=== PATIENT | female | born 1950 | race Caucasian/White ===

== ENCOUNTER → 2020-02-07 | Outpatient (CLI) | payer MEDICARE ==
--- NOTE | 2020-02-08 06:14 | MR ---
EXAMINATION TYPE: MR knee LT wo con DATE OF EXAM: 02/07/2020 COMPARISON: Outside left knee x-ray February 02, 2020. HISTORY: Left knee pain per order. TECHNIQUE: Multiplanar, multisequence images of the knee is performed without IV contrast. FINDINGS: MEDIAL MENISCUS: Anterior horn is intact without tear. Oblique signal posterior horn extends to infer ior articular surface with fraying on sagittal image 24. LATERAL MENISCUS: Horizontal increased signal through the anterior and posterior horns along the cent ral body. CRUCIATE LIGAMENTS: The anterior and posterior cruciate ligaments are intact and unremarkable. COLLATERAL LIGAMENTS: The medial collateral ligament and lateral collateral ligament complex are inta ct and unremarkable. EXTENSOR MECHANISM: Visualized quadriceps and patellar tendons are intact. EFFUSION: No significant suprapatellar joint effusion. POPLITEAL CYST: No popliteal/cee cyst. TRICOMPARTMENT SPACES: Moderate tricompartment joint space loss with mild to moderate tricompartmenta l joint space spurring. CARTILAGE: Some chondromalacia patella with thinning of articular cartilage along the posterior villa lar pole superiorly. BONE MARROW SIGNAL: Small areas of increased T2 signal the posterior patellar pole and areas of carti laginous loss for reference sagittal image 17. OTHER: No additional significant abnormality is appreciated. IMPRESSION: 1. Horizontal tear through the lateral meniscus including anterior and posterior horns along the cent ral body. 2. Oblique full-thickness tear posterior horn medial meniscus. 3. Moderate tricompartment degenerative changes greatest patellofemoral compartment as detailed above .
== END | disposition home or self-care (01) ==
LOC: RADMRIMAIN 17:50
PROVIDERS: ATTEND Orthopaedic Surgery
DX: S83.242A Other tear of medial meniscus, current injury, left knee, initial encounter (principal); S83.282A Other tear of lateral meniscus, current injury, left knee, initial encounter; M17.12 Unilateral primary osteoarthritis, left knee

== ENCOUNTER → 2020-02-21 | Outpatient (CLI) | payer MEDICARE ==
[2020-02-21 15:30] LABS: Basophils % (A) 0 %; Eosinophils # (A) 0.2 k/uL (0-0.7); Eosinophils % (A) 3 %; HCT 36.4 % (34.0-46.0); HGB 11.7 gm/dL (11.4-16.0); Lymphocytes # (A) 1.7 k/uL (1.0-4.8); Lymphocytes % (A) 29 %; MCH 29.7 pg (25.0-35.0); MCHC 32.1 g/dL (31.0-37.0); MCV 92.6 fL (80.0-100.0); Mean Platelet Volume 8.4; Monocytes # (A) 0.4 k/uL (0-1.0); Monocytes % (A) 6 %; Neutrophils # (A) 3.6 k/uL (1.3-7.7); Neutrophils % (A) 60 %; Platelet Count 177 k/uL (150-450); RBC 3.93 m/uL (3.80-5.40); RDW 12.8 % (11.5-15.5)
[2020-02-21 17:53] LABS: Potassium 4.3 mmol/L (3.5-5.1)
== END | disposition home or self-care (01) ==
LOC: LABPAT 14:47
PROVIDERS: ATTEND Orthopaedic Surgery
DX: Z01.818 Encounter for other preprocedural examination (principal); M23.92 Unspecified internal derangement of left knee
CPT/HCPCS: 36415; 80051; 85025; 93005

== ENCOUNTER 2020-03-07 11:00 | Day surgery (SDC) | payer MEDICARE ==
[2020-03-04 15:33] VITALS: BMI 27.4
--- NOTE | 2020-03-06 15:44 | HP ---
HISTORY AND PHYSICAL DATE OF SURGERY: 03/07/2020 Alejandra Hawthorne is a 69-year-old patient seen with progressive left knee pain. We discussed options for treatment. She elected to proceed with arthroscopy. Consent was obtained. PAST MEDICAL HISTORY: Hypothyroidism, osteoarthritis. PAST SURGICAL HISTORY: Left knee arthroscopy, D and C. DAILY MEDICATIONS: Ibuprofen, Synthroid, [place], vitamins. ALLERGIES: None. SOCIAL HISTORY: She denies tobacco use. PHYSICAL EVALUATION OF THE LEFT KNEE: Range of motion 0-120, there is a mild effusion. Tenderness along the medial joint line with a positive medial Effie's. Ligaments are stable. Hip rotation is without pain. Distal neurovascular exam is intact. Left knee radiographs revealed osteoarthritis changes. MRI left knee revealed medial meniscal tear, lateral meniscal tear and osteoarthritic changes. IMPRESSION: 1. Internal derangement, left knee with meniscal tears. 2. Left knee osteoarthritis. 3. Hypothyroidism. PLAN: Left knee arthroscopy with partial meniscectomy, partial synovectomy and debridement. MMODL / IJN: [id number] /
[~2020-03-07 11:00] MED LIST: LACTATED RINGERS 1,000 ML IV SCH
[2020-03-07] MEDS ORDERED: LIDOCAINE 1% (10MG/ML) FOR IV START INTRADERMA ONE (11:59)
[2020-03-07] MEDS ORDERED: ONDANSETRON 4 MG/2 ML VIAL ONE (12:03)
[2020-03-07] MEDS ORDERED: ONDANSETRON 4 MG/2 ML VIAL IVP ONE (12:22)
[2020-03-07] MEDS ORDERED: DEXAMETHASONE SOD PHOSPHATE 10 MG/ML 1 ML VIAL IV ONE (12:22)
[2020-03-07] MEDS ORDERED: LIDOCAINE 1% INJ 10MG/ML (20 ML MDV) ONE (12:47)
[2020-03-07] MEDS ORDERED: fentaNYL (PF) 50 MCG/ML 2 ML AMP ONE (12:47)
[2020-03-07] MEDS ORDERED: MIDAZOLAM 2 MG/2 ML VIAL ONE (12:47)
[2020-03-07] MEDS ORDERED: PROPOFOL 10 MG/ML 20 ML VIAL IV ONE (12:47)
[2020-03-07] MEDS ORDERED: BUPIVACAINE (PF) 0.25% 30 ML VIAL SQ ONE (13:17)
[2020-03-07] MEDS ORDERED: HYDROmorphone 0.5 MG/0.5 ML SYRINGE IVP ONE (13:40)
[2020-03-07 13:44] VITALS: TEMP 97
--- NOTE | 2020-03-07 13:44 | P.OP ---
Date of Procedure: 03/07/20 Preoperative Diagnosis: Internal derangement left knee Postoperative Diagnosis: 1. Tear medial meniscus left knee 2. Grade 2 chondromalacia medial femoral condyle left knee 3. Reactive synovitis medial, lateral and suprapatellar compartments left knee Procedure(s) Performed: 1. Arthroscopic partial medial meniscectomy left knee 2. Arthroscopic chondroplasty medial femoral condyle left knee 3. Arthroscopic partial synovectomy medial, lateral and suprapatellar compartments left knee Anesthesia: CORNELIAA, local Surgeon: Tray Jensen Estimated Blood Loss (ml): 7 Pathology: none sent Condition: stable Disposition: PACU Indications for Procedure: 69-year-old patient seen with progressive left knee pain. After treatment options were discussed, she elected to proceed with arthroscopy. Operative Findings: See description of procedure Description of Procedure: Patient was taken to the operative suite. Patient underwent a general anesthetic by the department of anesthesia. Patient was given preoperative antibiotics. The left lower extremity was placed in a well-padded arthroscopic leg soliz. The left leg was prepped and draped in the normal sterile orthopedic fashion. A lateral parapatellar and suprapatellar incision was made. Trochars were inserted. Arthroscopy was initiated. Suprapatellar pouch revealed diffuse thick reactive synovitis. The patellofemoral joint appeared to articulate congruently. There was grade 1 chondromalacia. The scope was guided into the medial gutter. No loose bodies or plica were identified.The scope was then guided into the medial compartment. A medial parapatellar incision was made. Trocar inserted followed by probe. There was a radial tear posterior horn medial meniscus. There were grade 2 chondromalacia changes of the medial femoral condyle with some small osteochondral flap tears present. There was thick reactive synovitis anteriorly. I performed a partial medial meniscectomy. I performed a chondroplasty of the medial femoral condyle. I performed a partial synovectomy. The residual meniscus was stable. The residual osteochondral surface was stable. He was good decompression of the synovitis. Scope and probe were then guided into the intercondylar notch. Cruciates were identified, probed and found to be stable. The scope and probe were then guided into lateral compartment. There was some superficial fraying of the lateral meniscus. There were grade 1 chondromalacia changes of the lateral femoral condyle. There was an area more medially some grade 3/4 chondromalacia with areas of exposed bone. There was thick reactive synovitis anteriorly. I performed a partial synovectomy. I debrided that superficial fraying. There was good decompression of synovitis. The scope was in guided back into the suprapatellar compartment. I introduced a motorized shaver into the suprapatellar. I debrided some piecemeal fragments of meniscus I encountered. I performed a partial synovectomy decompressing the reactive synovitis. The s haver was removed. I took one more look on the entire knee, no residual debris. Instruments were now removed from the joint. The joint was infiltrated with .25% Marcaine. Steri-Strips were applied to the portal sites. Sterile dressings were applied. The patient was placed into a MIKE hose. No tourniquet was utilized. The patient was awakened, transferred to a bed and taken to recovery stable satisfactory condition.
[2020-03-07 14:00] VITALS: RESP 16
[2020-03-07] MEDS ORDERED: SODIUM CHLORIDE 0.9% 1,000 ML IV ONE (14:01)
[2020-03-07 14:35] VITALS: BP 139/92; PULSE 58
== END 2020-03-07 14:57 | disposition home or self-care (01) ==
LOC: OR 11:00
PROVIDERS: ATTEND Orthopaedic Surgery
DX: M23.222 Derangement of posterior horn of medial meniscus due to old tear or injury, left knee (principal); M94.262 Chondromalacia, left knee; M65.862 Other synovitis and tenosynovitis, left lower leg; M17.12 Unilateral primary osteoarthritis, left knee; E03.9 Hypothyroidism, unspecified; Z91.018 Allergy to other foods; Z79.890 Hormone replacement therapy; Z79.1 Long term (current) use of non-steroidal anti-inflammatories (NSAID)
CPT/HCPCS: 29881; J2250; J1100; J0690; J2405; J2001; J3010; J2704; J1170

== ENCOUNTER 2023-01-07 07:01 | Day surgery (SDC) | payer MEDICARE ==
[2023-01-07] MEDS ORDERED: droPERidol 5 MG/2 ML VIAL IVP ONE (07:21)
[2023-01-07] MEDS ORDERED: LACTATED RINGERS 1,000 ML IV SCH (07:21)
[2023-01-07] MEDS ORDERED: DEXAMETHASONE SOD PHOSPHATE 4 MG/ML 1 ML VIAL IV ONE (07:21)
[2023-01-07] MEDS ORDERED: HYDROmorphone 0.5 MG/0.5 ML SYRINGE IVP PRN (07:21)
[2023-01-07] MEDS ORDERED: LIDOCAINE 1% (10MG/ML) FOR IV START INTRADERMA PRN (07:21)
[2023-01-07] MEDS ORDERED: ONDANSETRON 4 MG/2 ML VIAL IVP ONE (07:21)
--- NOTE | 2023-01-07 07:44 | HP ---
HISTORY AND PHYSICAL DATE OF SURGERY: 01/07/2023. HISTORY OF PRESENT ILLNESS: Alejandra Hawthorne is a 72-year-old patient seen with progressive right knee pain. Options for treatment were discussed with her. She elected to proceed with right knee arthroscopy. Consent regarding the procedure was obtained. PAST MEDICAL HISTORY: Hypothyroidism, hyperlipidemia, hypertension. PAST SURGICAL HISTORY: D and C, left knee arthroscopy. DAILY MEDICATIONS: Vitamins, Synthroid, atorvastatin, meloxicam. ALLERGIES: None. SOCIAL HISTORY: Denies tobacco use. PHYSICAL EVALUATION OF THE RIGHT KNEE: Range of motion is 0 to 130 degrees. Tenderness along the medial and lateral joint lines. Positive medial Effie's. Positive lateral Effie's. Ligaments stable. Hip rotation without pain. Distal neurovascular exam is intact. RADIOGRAPHS: Right knee radiographs revealed moderate patellofemoral compartment osteoarthritis. MRI of right knee revealed medial and lateral meniscal tears. IMPRESSION: 1. Internal derangement of right knee with medial and lateral meniscal tears. 2. Hypertension. 3. Hyperlipidemia. 4. Hypothyroidism. PLAN: Right knee arthroscopy with partial medial/lateral meniscectomy and debridement. MMODL / IJN: [id number] /
[2023-01-07] MEDS ORDERED: PROPOFOL 10 MG/ML 20 ML VIAL IV ONE (08:23)
[2023-01-07] MEDS ORDERED: HYDROmorphone (PF) 1 MG/ML ONE (08:23)
[2023-01-07] MEDS ORDERED: fentaNYL (PF) 50 MCG/ML 2 ML AMP ONE (08:23)
[2023-01-07] MEDS ORDERED: LIDOCAINE 2% INJ 20 MG/ML (2 ML VIAL) ONE (08:23)
[2023-01-07] MEDS ORDERED: MIDAZOLAM 2 MG/2 ML VIAL ONE (08:23)
[2023-01-07] MEDS ORDERED: BUPIVACAINE (PF) 0.25% 30 ML VIAL SQ ONE ×2 (08:29→09:02)
[2023-01-07 09:15] VITALS: TEMP 98.5
--- NOTE | 2023-01-07 09:15 | P.OP ---
Date of Procedure: 01/07/23 Preoperative Diagnosis: Internal derangement right knee Postoperative Diagnosis: 1. Tear medial and lateral meniscus right knee 2. Grade 4 chondromalacia medial femoral condyle right knee 3. Reactive synovitis medial, lateral and suprapatellar compartments right knee 4. Grade 4 chondromalacia lateral tibial plateau right knee Procedure(s) Performed: 1. Arthroscopic partial medial and lateral meniscectomy right knee 2. Arthroscopic microfracture medial femoral condyle right knee 3. Arthroscopic partial synovectomy medial, lateral and suprapatellar compartments right knee Anesthesia: SNEHA, local Surgeon: Tray Jensen Estimated Blood Loss (ml): 10 Pathology: none sent Condition: stable Disposition: PACU Indications for Procedure: 72-year-old patient seen with progressive right knee pain. After treatment options were discussed, she elected to proceed with arthroscopy. Operative Findings: See description of procedure Description of Procedure: Patient was taken to the operative suite. Patient underwent a general anesthetic by the department of anesthesia. Patient was given preoperative antibiotics. The right lower extremity was placed in a well-padded arthroscopic leg soliz. The right leg was prepped and draped in the normal sterile orthopedic fashion. A lateral parapatellar and suprapatellar incision was made. Trochars were inserted. Arthroscopy was initiated. Suprapatellar pouch revealed diffuse thick reactive synovitis. The patellofemoral joint appeared to articulate congruently. There was grade 1/2 chondromalacia of the patella withosteochondral tears. The scope was guided into the medial gutter. No loose bodies or plica were identified. The scope was then guided into the medial compartment. A medial parapatellar incision was made. Trocar inserted followed by probe. There was a complex tear involving the posterior horn medial meniscus. There were grade 3/4 chondromalacia changes along the medial femoral condyle with some osteochondral flap tears present. There was thick reactive synovitis anteriorly. I performed a partial medial meniscectomy getting down to stable meniscal tissue. I performed a chondroplasty of the medial femoral condyle getting down to stable osteochondral tissue. I performed a partial synovectomy decompressing the thick reactive slates anteriorly. I did note an area of exposed bone medial femoral condyle measuring approximate 1 cm along the weightbearing surface. I introduced a microfracture awl and I performed a microfracture to that area penetrating the bone with resultant bleeding at the microfracture site. The residual meniscus was probed and was found to be stable. The residual osteochondral surface appeared stable. There was good decompression of the synovitis. Scope and probe were then guided into the intercondylar notch. Cruciates were identified, probed and found to be stable. The scope and probe were then guided into lateral compartment. There was a complex tear involving the posterior horn and midbody lateral meniscus. There was an area of grade 4 chondromalacia lateral tibial plateau measuring about 2 cm on the posterior aspect. There was thick reactive synovitis anteriorly. I performed a partial lateral meniscectomy getting down to stable meniscal tissue. I performed a partial synovectomy decompressing the reactive synovitis. The residual meniscus was probed and was found to be stable. There was good decompression of the synovitis. The scope was in guided back into the suprapatellar compartment. I introduced a motorized shaver into the suprapatellar compartment. I debrided some piecemeal fragments of meniscus that I encountered. I performed a partial synovectomy. Shaver was removed. There appeared be good decompression of the synovitis. I now took one more look around the entire knee, no residual debris. Instruments were now removed from the joint. The joint was infiltrated with .25% Marcaine. Steri-Strips were applied to the portal sites. Sterile dressings were applied. The patient was placed into a MIKE hose. No tourniquet was utilized. The patient was awakened, transferred to a bed and taken to recovery stable satisfactory condition.
[2023-01-07 10:11] VITALS: BP 128/77; PULSE 55; RESP 16
== END 2023-01-07 10:54 | disposition home or self-care (01) ==
LOC: OR 07:01
PROVIDERS: ATTEND Orthopaedic Surgery
DX: S83.231A Complex tear of medial meniscus, current injury, right knee, initial encounter (principal); S83.271A Complex tear of lateral meniscus, current injury, right knee, initial encounter; M65.861 Other synovitis and tenosynovitis, right lower leg; M94.261 Chondromalacia, right knee; M17.11 Unilateral primary osteoarthritis, right knee; I10 Essential (primary) hypertension; E78.5 Hyperlipidemia, unspecified; E03.9 Hypothyroidism, unspecified; Z79.890 Hormone replacement therapy; Z79.899 Other long term (current) drug therapy; Z98.890 Other specified postprocedural states; Z86.73 Personal history of transient ischemic attack (TIA), and cerebral infarction without residual deficits
CPT/HCPCS: 84132; 29879; 29880; J2250; J1100; J0690; J2405; J3010; J1170; J2704; J2001

== ENCOUNTER → 2024-01-18 | Outpatient (CLI) | payer MEDICARE, SELFPAY ==
--- NOTE | 2024-01-18 21:09 | BD ---
EXAMINATION TYPE: Axial Bone Density DATE OF EXAM: 01/18/2024 CLINICAL HISTORY: 73 years old Female. ICD-10 CODE: C50.412 MALIG NEOPLASM OF UPPER-OUTER QUADRANT O F Height: 66.5 Weight: 200 FRAX RISK QUESTIONS: Family History (Parent hip fracture): no History of Fracture in Adulthood: no Secondary Osteoporosis: yes 3. Menopause before 45: yes RISK FACTORS HISTORY OF: Surgery to Spine/Hip(right/left)/Wrist (right/left): no MEDICATIONS: Thyroid Medications: yes Which medication: Levothyroxine How Lon+ years Osteoporosis Medications: no EXAM MEASUREMENTS: Bone mineral densitometry was performed using the UXPin System. Bone mineral density as measured about the Lumbar spine is: ----- L1-L4(G/cm2): 1.171 T Score Values are as follows: ----- L1: -0.4 ----- L2: -0.9 ----- L3: 0.0 ----- L4: 0.5 ----- L1-L4: -0.1 Z Score Values are as follows: ----- L1: 0.5 ----- L2: 0.0 ----- L3: 0.9 ----- L4: 1.4 ----- L1-L4: 0.8 Bone mineral density has: Increased 12.8% since study of: 02/27/2003 Bone mineral density about the R hip (g/cm2): 0.980 Bone mineral density about the L hip (g/cm2): 1.049 T Score values are as follows: -----R Neck: -0.9 -----L Neck: -0.6 -----R Total: -0.2 -----L Total: 0.3 Z Score values are as follows: -----R Neck: 0.4 -----L Neck: 0.7 -----R Total: 0.9 -----L Total: 1.4 Bone mineral density has: Decreased -3.0% since study of: 02/27/2003 FRAX%s: The graph provided illustrates a 9.2% chance for a major osteoporotic fx and a 1.3% chance fo r the hips probability for fx in 10 years time. IMPRESSION: Normal (Values between +1 and -1 indicate normal bone mass). Consider repeating this study in 5 year s or sooner if there is some new clinical indication. NOTE: T-SCORE=SD OF THE YOUNG ADULT MEAN.
== END | disposition home or self-care (01) ==
LOC: RADBDWWP 15:39
DX: C50.412 Malignant neoplasm of upper-outer quadrant of left female breast (principal); Z78.0 Asymptomatic menopausal state
CPT/HCPCS: 77080

== ENCOUNTER → 2024-07-21 | Outpatient (CLI) | payer MEDICARE ==
--- NOTE | 2024-07-21 11:26 | MM ---
Reason for Exam: Hx of breast cancer, conservation therapy. Last screening mammogram was performed 12 month(s) ago. Patient History: Menarche at age 12. Patient has no children. Postmenopausal. Breast cancer, left, age 72. Previous chest radiation therapy at age 72. Patient used Hormonal Contraceptives for 2 years. 07/22/2023, US biopsy breast VAD LT - 2 on the Left side. 2023, Lumpectomy on the Left side. 07/22/2023, Ultrasound-Guided Core Biopsy on the Left side. 2023, Radiation Therapy on the left side. Tissue Density: The breasts are heterogeneously dense, which may obscure small masses. Findings: Analyzed By CAD. Benign-appearing round and linear calcifications bilaterally are redemonstrated. There is new distortion along with surgical clips and skin thickening in the left breast consistent with presumed interval posttreatment change. Overall Assessment: Probably benign, BI-RAD 3 Management: Diagnostic Mammogram of the left breast in 6 months. Precautionary short-term follow-up left breast to establish new baseline. Results were given to the patient verbally at the time of exam. Patient should continue monthly self-breast exams. A clinical breast exam by your physician is recommended on an annual basis. This exam should not preclude additional follow-up of suspicious palpable abnormalities. Note on Amy scores and lifetime risk: 1. A Amy score greater than 3% is considered moderate risk. If this is the case, consider specialist referral to assess eligibility for a risk reducing agent. 2. If overall lifetime risk for the development of breast cancer is 20% or higher, the patient may qualify for future screening with alternating mammogram and breast MRI. [facility], , 07/21/2024 11:23 AM. Electronically signed and approved by: Orville Leon M.D.
== END | disposition home or self-care (01) ==
LOC: RADMAMWWP 10:41
PROVIDERS: ATTEND Radiology Radiation Oncology
DX: C50.812 Malignant neoplasm of overlapping sites of left female breast (principal); Z17.0 Estrogen receptor positive status [ER+]; C50.412 Malignant neoplasm of upper-outer quadrant of left female breast; Z78.0 Asymptomatic menopausal state; Z85.3 Personal history of malignant neoplasm of breast; R92.333 Mammographic heterogeneous density, bilateral breasts; Z98.82 Breast implant status
CPT/HCPCS: 77066; G0279; 77062

== ENCOUNTER → 2025-01-12 | Outpatient (CLI) | payer MEDICARE ==
--- NOTE | 2025-01-12 15:33 | US ---
EXAMINATION TYPE: US venous doppler duplex LE BI DATE OF EXAM: 01/12/2025 3:13 PM COMPARISON: NONE CLINICAL INDICATION: Female, 74 years old with history of R00.1 BRADYCARDIA, UNSPECIFIED; Bilateral l eg swelling TECHNIQUE: The lower extremity deep venous system is examined utilizing real time linear array sonog chencho with graded compression, color doppler sonography, and spectral doppler. SIDE PERFORMED: Bilateral FINDINGS: VESSELS IMAGED: Common Femoral Vein Deep Femoral Vein Greater Saphenous Vein * Femoral Vein Popliteal Vein Small Saphenous Vein * Proximal Calf Veins (* superficial vessels) Right Leg: Appears negative for DVT Left Leg: Appears negative for DVT IMPRESSION: No ultrasound evidence for deep venous thrombosis. [facility], , 01/12/2025 3:31 PM
== END | disposition home or self-care (01) ==
LOC: RADUSWWP 14:44
PROVIDERS: ATTEND Family Medicine
DX: R00.1 Bradycardia, unspecified (principal); R60.9 Edema, unspecified
CPT/HCPCS: 93970